=== PATIENT | female | born 1965 | race Caucasian/White ===

== ENCOUNTER 2020-10-30 02:44 | Emergency (ER) | payer SELFPAY ==
[~2020-10-30] VITALS: Ht 162.6 cm; Wt 68.0 kg
--- NOTE | 2020-10-30 02:54 | NUR ---
PT BIB [facility] WITH C/C OF ANXIETY. PT WAS VERY ANXIOUS AT [facility] AND BECAME UNMANAGEABLE, AND WAS GIVEN 2 MG OF VERSED BY EMS FOR TRANSPORT. ON ASSESMENT OF PT, SHE IS A&OX4, LOOKS LIKE SHES BEEN CRYING AND WHEN ASKED QUESTIONS, THE FIRST THING THE PT WANTED TO LET ME KNOW WAS THAT THE EFFECTS OF THE VERSED WERE WEARING OFF AND SHE WANTED MORE MEDICATION. MD FLAVIO REYEZ PT.
--- NOTE | 2020-10-30 03:00 | NUR ---
PT TELLING THAT SHE WAS AT THE [facility] TODAY, AND HAD TAKEN CBD AND THC TO CALM HER ANXIETY. PT STATES THAT HER MOUTH HAS BEEN SUPER DRY ALL DAY. PT STATES HER ANXIETY GOT TO BE TOO MUCH SHE CAME OFF OF HER VENAPHELEXIN MEDICATION AFTER ASKING HER DOCTOR IF SHE COULD COME OFF OF IT AND PER THE PT, THE DOCTOR TOLD HER YES. PT SAYS SHE FELT WORST AFTER COMING OFF OF IT, AND IS HERE FOR MEDICATION.
--- NOTE | 2020-10-30 03:16 | NUR ---
PT HAD EMESIS X1. WHEN ASKED WHAT SHE ATE, SHE STATES SERBIAN FOOD. PT SAYS SHE FEELS WAY BETTER WITH THE EMESIS, BUT WANTING WATER NOW. PT ADVISED TO WAIT, AND ICE CHIPS PROVIDED TO PT INSTEAD. PT NOW NEEDS TO USE THE RESTROOM EMERGENTLY TO HAVE A BM. PT ABLE TO WALK WITHOUT ISSUE AND ACTUALLY RAN A LITTLE TO THE BATHROOM. PTS AT HER SIDE AND ASSISTING WHEN NEEDED. MEDS ORDERED FROM PHARMACY FOR PT.
[2020-10-30] MEDS ORDERED: VENLAFAXINE 75MG TABLET PO ONE (03:30)
[2020-10-30] MEDS ORDERED: PLEASE ENTER ALLERGIES MC SCH (03:30)
--- NOTE | 2020-10-30 04:30 | NUR ---
WENT TO [place] PT AND SHE BEGAN VOMITTING AGAIN. MD MADE AWARE AND NEW ORDERS RECEIVED PRIOR TO DISCHARGE. IVF STARTED TO RUN OVER AN HOUR, 1 LITER NS. AND ZOFRAN ORDERED. FIRST VIAL DROPPED ON FLOOR. SECOND VIAL OF ZOFRAN INTACT, AND PT MEDICATED WITH ZOFRAN WELL.
[2020-10-30] MEDS ORDERED: ONDANSETRON 2MG/ML, 2ML ONE ×2 (04:33→05:34)
[2020-10-30] MEDS ORDERED: ONDANSETRON 2MG/ML, 2ML IVPush ONE (05:30)
[2020-10-30 05:37] VITALS: BP 150/68
--- NOTE | 2020-10-30 06:05 | NUR ---
IVF COMPLETE, AND PT SLEEPING, AND EASILY AROUSABLE. PT ADVISED SHE WILL BE DISCHARGED NOW, AND SHE AGREES. PIV D/C'D AND CATH TIP INTACT. PT GIVEN F/U AND D/C ORDERS AND SHE V/U. PT USED WHEELCHAIR TO GO TO DISCHARGE DESK. PT IS WITH HER AND HE IS CARING FOR HER, AND ASSISTED HER INTO THEIR CAR.
== END 2020-10-30 06:30 | disposition home or self-care (01) ==
LOC: ED 06:00
DX: F41.1 Generalized anxiety disorder (principal); F17.200 Nicotine dependence, unspecified, uncomplicated
CPT/HCPCS: 99283; J2405